=== PATIENT | female | born 1960 | race Caucasian/White ===

== ENCOUNTER 2018-11-07 12:36 | Inpatient (IN) ==
[2018-11-07] MEDS ORDERED: DUONEB (A & A) INH ONE (12:54)
[2018-11-07] MEDS ORDERED: SOLU-MEDROL IV ONE (12:55)
--- NOTE | 2018-11-07 13:03 | PROVIDER DOCUMENTATION ---
This chart was entered by Elaine Chavez Scribe, acting as scribe for Abby Barbosa CRNP. HPI-General Adult - General Chief Complaint: Cough Stated Complaint: POSS. PNEUMONIA Time Seen by Provider: 11/07/18 12:40 Source: patient Allergies/Adverse Reactions: Patient Allergies Allergy/AdvReac Type Severity Reaction Status Date / Time doxycycline Allergy Severe HIVES Verified 10/15/18 08:20 latex Allergy HIVES Verified 10/15/18 08:20 Home Medications: Home Medication List Medication Instructions Recorded Confirmed Last Taken Type Atenolol [Tenormin] 50 mg PO DAILY #0 04/09/16 10/30/18 10/29/18 Rx Duloxetine HCl [Cymbalta] 30 mg PO DAILY #30 capsule. 04/09/16 10/30/18 10/29/18 Rx Gabapentin 800 mg PO TID 10/15/18 10/30/18 10/29/18 History Hydrocodone/Acetaminophen [Harshaw 1 each PO Q4-6H PRN PRN 10/15/18 10/30/18 10/29/18 History 7.5-325 Tablet] Hyoscyamine Subl [Levsin-Sl] 0.125 mg SL TID PRN #12 tab 10/15/18 10/30/18 10/29/18 Rx Ondansetron Odt [Zofran 4 mg Odt] 4 mg PO Q6H PRN PRN #14 tab 10/15/18 10/30/18 10/29/18 Rx - History of Present Illness -Gen Adult Nature of Presenting Problems: 58 y/o female presents to ED with cough and sinus drainage onset yesterday. Pt reports she was seen at urgent care this morning and sent to ED because her O2 sat was low. O2 sat 86% on room air in room. Pt is alert and oriented. Location of Pain/Injury: reports: none Pain Radiation: reports: no radiation Quality of Pain: reports: none Severity: reports: mild Onset/Duration: reports: 24 hours ago Timing: reports: still present Context/Activities at Onset: reports: none Modifying Factors: improves with: nothing Associated Symptoms: reports: cough, sinus congestion/drainage Similar Symptoms Previously?: No Recently seen or treated by another doctor?: Yes (sent to ED from urgent care) Review of Systems - Adult - REVIEW OF SYSTEMS - ADULT Constitutional: denies: chills, fever Eyes: reports: no symptoms reported Ears, Nose, Mouth & Throat: reports: sinus problem. denies: epistaxis Cardiovascular: denies: chest pain, palpitations Respiratory: reports: cough. denies: shortness of breath Gastrointestinal: denies: abdominal pain, diarrhea, nausea, vomiting Genitourinary: reports: no symptoms reported Musculoskeletal: denies: back pain, joint pain Integumentary: reports: no symptoms reported Neurological: denies: dizziness/vertigo, seizure Psychiatric: reports: no symptoms reported Endocrine: reports: no symptoms reported Hematologic/Lymphatic: reports: no symptoms reported Allergic/Immunologic: reports: no symptoms reported All Other Systems: Reviewed and Negative Past History - Adult - PAST MEDICAL HISTORY-ADULT Review of Records: reports: Old Records Reviewed, Nursing Assessment Review, Medications Reviewed Major Childhood Illnesses: reports: denies history Cardiovascular: reports: heart valve problem (MVP), [place] Gastrointestinal: reports: GERD Obstetrical/Gynecological: reports: denies history Psychiatric: reports: depression - PRIOR SURGERIES/PROCEDURES Surgical/Procedure History: reports: cholecystectomy, hysterectomy, orthopedic (extremity) (R rotator cuff), back/neck (C spine; neck) - IMMUNIZATION STATUS Childhood Immunizations: See Nurse Assessment Flu Vaccine: See Nurse Assessment - FAMILY HISTORY Family History: reviewed, not pertinent - SOCIAL HISTORY Smoking: quit greater than 1 year Substance Use: none/never Alcohol Use Frequency: never Living Situation: family Physical Exam-General - PHYSICAL EXAM-ADULT Initial Vital Signs Reviewed: Yes (O2 sat 86%) - CONSTITUTIONAL General Appearance: appears well, alert, no apparent distress - EYES Eyes: PERRL/EOMI, pink conjunctivae - HEAD, EARS, NOSE, MOUTH & THROAT HENMT: normocephalic/atraumatic, moist mucous membranes, normal ENT inspection - NECK Neck: non-tender, full range of motion - RESPIRATORY Respiratory: chest non-tender, lungs clear, normal breath sounds, no pleuratic chest pain, no respiratory distress, no accessory muscle use - CARDIOVASCULAR Cardiovascular: normal peripheral pulses, regular rate, rhythm - GASTROINTESTINAL (ABDOMEN) Abdominal Exam: normal bowel sounds, non tender, soft - MUSCULOSKELETAL Back Exam: normal inspection, no CVA tenderness Extremity: normal range of motion, non-tender, normal gait - SKIN Integumentary: normal color, warm/dry - NEUROLOGIC Neurologic: grossly normal - PSYCHIATRIC Psych/Mental Status: normal mood/affect, normal thought content, normal thought process Progress - PLAN OF CARE/RESULTS Progress/Plan/Lab Results: Vital Signs - 8 hr 11/07/18 12:44 Temperature 98.2 F Pulse Rate 107 H Respiratory Rate 18 Blood Pressure 116/69 O2 Sat by Pulse Oximetry 90 L Orders Category Date Time Status Saline Loc NOW Care 11/07/18 12:55 Active CHEST-2 VIEWS [RAD] Stat Exams 11/07/18 12:49 Ordered ABG [RESP] Routine Lab 11/07/18 12:54 Ordered CBC WITH ELECTRONIC DIFF [HEME] Stat Lab 11/07/18 12:55 Ordered COMPREHENSIVE METABOLIC PANEL [CHEM] Stat Lab 11/07/18 12:55 Ordered Albuterol 2.5MG/Ipratrop 0.5MG [Duoneb (A & A)] Med 11/07/18 12:54 Once 6 ml INH NOW ONE Methylprednisolone Sod Succ [Solu-Medrol] Med 11/07/18 12:55 Discontinued 80 mg IV NOW ONE Aerosol Treatments Routine Oth 11/07/18 12:54 Active Aerosol Treatments Stat Oth 11/07/18 12:54 Active Result Diagrams: 11/07/18 13:15 11/07/18 13:15 - XRAY 1 XRAY Study: Chest Impression: Abnormal (FINDINGS: There is left upper lobe patchy airspace consolidation indicating pneumonia. There is no discrete pleural fluid colle ction or pneumothorax. The cardiomediastinal silhouette and central vasculature are grossly unremarkable. IMPRESSION: Left upper lobe pneumonia. Electronically signed by Tristin Swift 11/07/2018 1:43 PM) - CONSULTS/PCP/HOSPITALIST Notification #1 *Consult/PCP/Hospitalist*: Dr. Salmeron Time Discussed: 14:11 Reason/Comments: Admission Consult Disposition: Admit Departure - Departure Date of Disposition Decision: 11/07/18 Time of Disposition Decision: 13:51 DIAGNOSIS: Hypoxia Pneumonia Qualifiers: Pneumonia type: due to unspecified organism Laterality: left Lung location: upper lobe of lung Qualified Code(s): J18.1 - Lobar pneumonia, unspecified organism Disposition: ADMITTED INPATIENT 09 Certified Medical Emergency: Emergent Condition: Stable Referrals and Follow-Ups: Liborio Stein [Primary Care Provider] - - Critical Care Note This patient required my direct & personal management of CC.: No Attestation - Physician/ JADE Attestation Patient care was provided by Advanced Practice Provider:: Yes Advanced Practice Provider:: Abby Barbosa Advanced Practice Provider documentation review:: The Mid-level provider documentation, treatment plan and medical decision making was reviewed by the physician who agrees with all treatment and medical decision making by the MLP. The physician spent face to face time with patient:: No Advanced Practice Provider documentation review:: Supervising physician onsite and consulted in the evaluation and care of this patient. The physician did not have a face to face encounter with the patient. This chart was documented by the indicated scribe, (Elaine Chavez Scribe) and accurately reflects the services I performed and decisions made by me, Abby Barbosa CRNP, as attested by the provider's signature.
[2018-11-07 13:20] LABS: BASO# 0.03 X1000 (0.0-0.2); BASO% 0.2 % (0.0-0.8); EOS# 0.18 X1000 (0.0-0.7); EOS% 1.3 % (0.0-10.0); HEMATOCRIT 34.1 % (37.0-47.0); IMM GRAN# 0.02 X1000 (0.0-0.04); IMM GRAN% 0.1 % (0.0-0.5); LYMPH# 1.79 X1000 (1.2-3.4); LYMPH% 12.5 % (20.5-51.1); MCH 30.1 PG (27-31); MCHC 32.3 g/dL (33-37); MCV 93.4 FL (81-99); MONO# 0.55 X1000 (0.11-0.59); MONO% 3.8 % (1.7-9.3); MPV 10.1 FL (7.4-10.4); NEUT# 11.75 X1000 (1.4-6.5); NEUT% 82.1 % (42.2-75.2); PLT 393 X1000 (130-400); RBC 3.65 XMIL (4.2-5.4); RDW 15.4 % (11.5-14.5); WBC 14.32 X1000 (4.8-10.8)
[2018-11-07 13:25] LABS: BE 2.4 mmoll (-3.0-3.0); BLOOD TYPE ARTERIAL; HCO3-(ACT) 26.4 mmoll (20.0-26.0); METHB 1.4 % (0.0-1.5); O2(CT) 12.5 mL/dL (15.0-23.0); SAMPLE BLOOD; SAO2 87.7 % (95.0-100.0); THB 11.2 g/dL (11.5-17.4); pH(98.6) 7.34 (7.35-7.45)
[2018-11-07 13:38] LABS: AGAP 10; ALBUMIN 3.6 g/dL (3.5-5.0); ALKALINE PHOSPHATASE 125 U/L (32-104); BUN 8 mg/dL (8-22); CALCIUM 8.5 mg/dL (8.8-10.2); CHLORIDE 100 mmol/L (98-107); COSMO 273; CREATININE 0.5 mg/dL (0.5-0.9); ESTIMATED GFR > 60; GLUCOSE 105 mg/dL (70-104); GOT 24 U/L (10-30); GPT 44 U/L (10-36); POTASSIUM 3.7 mmol/L (3.5-5.1); SODIUM 137 mmol/L (136-145); TCO2 27 mmol/L (25-35); TOTAL PROTEIN 6.7 g/dL (6.3-8.3)
--- NOTE | 2018-11-07 13:46 | Diag Imaging Result Doc PS360 ---
EXAM: CHEST-2 VIEWS INDICATION: cough low 02 sat TECHNIQUE: 2 views COMPARISON: 03/12/2018 FINDINGS: There is left upper lobe patchy airspace consolidation indicating pneumonia. There is no discrete pleural fluid collection or pneumothorax. The cardiomediastinal silhouette and central vasculature are grossly unremarkable. IMPRESSION: Left upper lobe pneumonia. Electronically signed by Tristin Swift 11/07/2018 1:43 PM
[2018-11-07] MEDS ORDERED: ROCEPHIN 1 GM in NS 50 ML IV ONE (13:50)
[2018-11-07] MEDS ORDERED: ZITHROMAX 500 MG/NS 500 MG/250 ML IVPB IV ONE (13:50)
[2018-11-07 14:06] LABS: PCO2(98.6) 54 mmHg (35-45)
[2018-11-07 14:07] LABS: PO2(98.6) 43 mmHg (60-100)
[2018-11-07 14:09] LABS: ALLEN TEST YES; MODALITY ROOM AIR; O2HB 79.7 % (95.0-99.0)
[2018-11-07] MEDS ORDERED: DUONEB (A & A) INH PRN (14:21)
[2018-11-07] MEDS: DUONEB (A & A) INH SCH ×3 (16:04→23:13)
[2018-11-07] MEDS: NS 1,000 ML IV SCH (16:11)
[2018-11-07] MEDS ORDERED: ROBITUSSIN-DM PO PRN (16:18)
--- NOTE | 2018-11-07 17:23 | HISTORY AND PHYSICAL ---
CHIEF COMPLAINT: Cough, low blood, low oxygen. HISTORY OF PRESENT ILLNESS: This is a 58-year-old female with a history of mitral valve prolapse, who presented to the emergency room after being evaluated at an outlying facility and being found to have a room air saturation of 86%. The patient states that she has had a cough and sinus drainage for the last 24 hours. During the night up into the morning, she developed dyspnea on exertion. During the night up into the morning she developed shortness of breath at rest with a persistent cough prompting her seeking help. Chest x-ray revealed left upper lobe pneumonia. ABGs revealed a pCO2 of 54 and PO2 of 43 on room air. She is being admitted for further evaluation and treatment. PAST MEDICAL HISTORY: Mitral valve prolapse, gastroesophageal reflux disease, chronic neck pain status post fusion, alcoholic pancreatitis, past narcotic addiction. PAST SURGICAL HISTORY: Cholecystectomy, hysterectomy, orthopedic surgery to left foot and cervical C5-C6 fusion. ALLERGIES: Doxycycline and latex. HOME MEDICATIONS: A list will be obtained by the nursing staff. Once verified, we will review and restart as appropriate. REVIEW OF SYSTEMS: Discussed with patient with pertinent positives stated in the HPI. She denied any syncope, dizziness, chest pain, palpitations, any fevers, chills, body aches, any nausea, vomiting, diarrhea, constipation, black or bloody vomitus or stools, any hematuria, dysuria, frequency, urgency. PHYSICAL EXAMINATION: GENERAL: This is a 58-year-old female who is sitting up in the stretcher in the ER in no distress. VITAL SIGNS: Blood pressure is 103/69 with a heart rate of 100, respirations are 20, temperature is 97.8 degrees oral with O2 saturation 97 to 100 percent on 2 L nasal cannula. EYES: Pupils are equal, round, react to light. EOMs are intact. Sclerae are anicteric. HEENT: Head is normocephalic, atraumatic. Mucous membranes are moist. NECK: Supple with trachea midline. CARDIOVASCULAR: Regular rate and rhythm. S1 and S2 appreciated. EXTREMITIES: She has no lower extremity edema. Peripheral pulses are palpable x4 extremities. Calves are nontender to palpation. GASTROINTESTINAL: Abdomen is soft, nontender, nondistended with bowel sounds in all 4 quadrants. NEUROLOGIC: She is alert and oriented x3. SKIN: Warm and dry. LABS: WBC is 14.3, with a hemoglobin 11, hematocrit 34, platelets of 393,000. ABGs, pH is 7.3 with a CO2 of 54, pO2 of 43 and a bicarb of 26.4. These are on room air. Sodium is 137, potassium 3.7, BUN 8, creatinine 0.5, glucose of 105. Blood cultures are pending. Chest x-ray revealed left upper lobe pneumonia. ASSESSMENT AND PLAN: A 58-year-old female who is sitting up in the stretcher in ICU in no distress. 1. Left upper lobe pneumonia. 2. Acute hypercarbic hypoxic respiratory failure. 3. Leukocytosis secondary to #1. 4. History of mitral valve prolapse. 5. History of alcohol abuse and narcotic abuse. We are aware. 6. DVT prophylaxis and GI prophylaxis. The patient will be admitted to the medical-surgical floor. She will be placed on telemetry. We will continue with supplemental oxygen. We will start incentive spirometer, giving DuoNeb q.4 hours or q.2 hours p.r.n. and steroids to taper. We will continue with Rocephin 1 g every 24 hours as well as azithromycin 500 mg daily, and any further antibiotics will be culture driven. Will identify her home medications and continue these as appropriate. We will repeat a CBC and a CMP in the morning. We will give Robitussin DM for cough. For DVT prophylaxis we will use SCDs and GI prophylaxis use Prilosec. Further treatments pending hospital course. Dictated by HORACIO Wolff for Félix Salmeron MD This chart was documented by, HORACIO Wolff and accurately reflects the services performed, treatment plan and medical decisions as attested by the providers signature Félix Salmeron MD. cc: HORACIO Wolff MD
[2018-11-07] MEDS: SOLU-MEDROL IV SCH (20:58)
[2018-11-07 23:52] VITALS: BP 122/71
[2018-11-08 00:13] LABS: INR 0.92; PROTIME 12.8 Seconds (11.0-16.0)
[2018-11-08 00:14] LABS: PTT 41.6 Seconds (22.3-41.8)
--- NOTE | 2018-11-08 01:05 | HISTORY AND PHYSICAL ---
ADDENDUM: Patient seen and examined by myself. Full note dictated and discussed with nurse practitioner. Patient presented to the walk-in clinic earlier and was asked to come to the ER where she was subsequently noted to be [*]. She was diagnosed with pneumonia and likely a COPD exacerbation. We will admit her to the hospital, place her on antibiotics, oxygen, breathing treatments and we will follow. cc: Félix Salmeron MD
[2018-11-08] MEDS: DUONEB (A & A) INH SCH ×3 (03:45→10:55)
[2018-11-08] MEDS: SOLU-MEDROL IV SCH (04:03)
[2018-11-08] MEDS: NS 1,000 ML IV SCH (06:04)
[2018-11-08 06:25] LABS: HEMATOCRIT 31.5 % (37.0-47.0); HEMOGLOBIN 10.2 g/dL (12.0-16.0); IMM GRAN# 0.01 X1000 (0.0-0.04); IMM GRAN% 0.1 % (0.0-0.5); LYMPH# 0.79 X1000 (1.2-3.4); LYMPH% 6.9 % (20.5-51.1); MCH 29.9 PG (27-31); MCHC 32.4 g/dL (33-37); MCV 92.4 FL (81-99); MONO# 0.17 X1000 (0.11-0.59); MONO% 1.5 % (1.7-9.3); MPV 10.4 FL (7.4-10.4); NEUT# 10.44 X1000 (1.4-6.5); NEUT% 91.5 % (42.2-75.2); PLT 417 X1000 (130-400); RBC 3.41 XMIL (4.2-5.4); RDW 15.2 % (11.5-14.5); WBC 11.41 X1000 (4.8-10.8)
[2018-11-08 06:39] LABS: AGAP 12; ALBUMIN 3.3 g/dL (3.5-5.0); ALKALINE PHOSPHATASE 106 U/L (32-104); BUN 5 mg/dL (8-22); CALCIUM 8.6 mg/dL (8.8-10.2); CHLORIDE 102 mmol/L (98-107); COSMO 280; CREATININE 0.4 mg/dL (0.5-0.9); ESTIMATED GFR > 60; GLUCOSE 163 mg/dL (70-104); GOT 15 U/L (10-30); GPT 31 U/L (10-36); SODIUM 140 mmol/L (136-145); TCO2 25 mmol/L (25-35); TOTAL PROTEIN 6.3 g/dL (6.3-8.3)
[2018-11-08] MEDS ORDERED: ZOFRAN IV PRN (06:55)
[2018-11-08] MEDS ORDERED: PRILOSEC PO SCH (07:00)
[2018-11-08] MEDS ORDERED: ZITHROMAX PO SCH (09:00)
[2018-11-08] MEDS ORDERED: ZOFRAN ODT PO PRN (09:23)
[2018-11-08] MEDS ORDERED: KLOR-CON PO ONE (09:24)
[2018-11-08] MEDS ORDERED: CYMBALTA PO SCH (09:30)
[2018-11-08] MEDS ORDERED: TENORMIN PO SCH (09:30)
[2018-11-08] MEDS ORDERED: SOLU-MEDROL IV SCH (12:00)
[2018-11-08] MEDS ORDERED: NEURONTIN PO SCH (13:00)
[2018-11-08] MEDS ORDERED: ROCEPHIN 1 GM in NS 50 ML IV SCH (14:00)
--- NOTE | 2018-11-09 01:21 | DISCHARGE SUMMARY ---
ADMISSION DATE: 11/07/2018 DISCHARGE DATE: 11/08/2018 DISCHARGE DIAGNOSES: 1. Left upper lobe pneumonia, improved. 2. Acute hypoxic respiratory failure, resolved. 3. Leukocytosis, resolved. 4. Hypokalemia. CONSULTATIONS: None. PROCEDURES: None. BRIEF HOSPITAL COURSE: Patient is a 58-year-old female who presented to the hospital, treated in the usual fashion, placed on antibiotics, oxygen, steroids, breathing treatments. Thankfully, her lungs continued to improve and she had uneventful hospital course. DISPOSITION: Patient will be discharged home. She will follow up outpatient with treatment facility of choice. Discussed with her discharged with antibiotics, steroids. She is to avoid all smoke, smoke exposure as well as chemical exposure for the next 1 to 2 weeks until she follows up with her primary care. Greater than 30 minutes was spent in total care. cc: Félix Salmeron MD
== END 2018-11-08 12:37 | disposition home or self-care (01) | DRG 193 ==
LOC: P.ED 12:36 → P.MEDSURG 12:37
PROVIDERS: ATTEND Family Medicine
CPT/HCPCS: 71020; 71046; 80053; 82550; 82805; 83605; 84484; 85025; 85610; 85730; 87040; 94640; 94761; 94799; A9270; J0456; J0696; J2405; J2930; J7030

== ENCOUNTER 2019-01-23 09:20 | Observation (INO) ==
[2019-01-23 10:08] LABS: BASO# 0.03 X1000 (0.0-0.2); BASO% 0.4 % (0.0-0.8); EOS# 0.05 X1000 (0.0-0.7); EOS% 0.6 % (0.0-10.0); HEMOGLOBIN 16.3 g/dL (12.0-16.0); IMM GRAN# 0.03 X1000 (0.0-0.04); IMM GRAN% 0.4 % (0.0-0.5); LYMPH% 23.1 % (20.5-51.1); MCH 30.6 PG (27-31); MCHC 35.4 g/dL (33-37); MCV 86.5 FL (81-99); MONO# 0.57 X1000 (0.11-0.59); MONO% 6.9 % (1.7-9.3); MPV 10.7 FL (7.4-10.4); NEUT# 5.65 X1000 (1.4-6.5); NEUT% 68.6 % (42.2-75.2); PLT 512 X1000 (130-400); RBC 5.32 XMIL (4.2-5.4); RDW 13.3 % (11.5-14.5); WBC 8.23 X1000 (4.8-10.8)
[2019-01-23] MEDS ORDERED: SODIUM CHLORIDE 0.9% INJ ONE (10:11)
[2019-01-23] MEDS ORDERED: PHENERGAN IV ONE (10:11)
[2019-01-23] MEDS ORDERED: NS 1,000 ML IV ONE ×3 (10:11→14:39)
[2019-01-23 10:22] LABS: ALBUMIN 4.5 g/dL (3.5-5.0); CALCIUM 10.7 mg/dL (8.8-10.2); MAGNESIUM 1.4 mg/dL (1.5-2.7); POTASSIUM 2.9 mmol/L (3.5-5.1); TOTAL BILIRUBIN 0.4 mg/dL (0.20-1.00); TOTAL PROTEIN 8.4 g/dL (6.3-8.3)
[2019-01-23 10:25] LABS: INR 0.93; PROTIME 12.9 Seconds (11.0-16.0)
[2019-01-23 10:26] LABS: PTT 33.1 Seconds (22.3-41.8)
[2019-01-23] MEDS ORDERED: MAGNESIUM SULFATE 2 GM/S.W.I. 2 GM/50 ML IVPB IV ONE (10:30)
[2019-01-23] MEDS ORDERED: KLOR-CON PO ONE (10:31)
[2019-01-23] MEDS ORDERED: DEMEROL IV ONE (11:15)
[2019-01-23] MEDS ORDERED: TORADOL IM ONE (11:43)
--- NOTE | 2019-01-23 12:44 | EKG Report ---
Test Performed on : 01/23/2019 12:03:44 PM Test Reason : tachycardic/low k Blood Pressure : / mmHG Vent. Rate : 103 BPM Atrial Rate : 103 BPM P-R Int : 152 ms QRS Dur : 096 ms QT Int : 412 ms P-R-T Axes : 068 036 -05 degrees QTc Int : 539 ms Sinus tachycardia. 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
--- NOTE | 2019-01-23 13:42 | PROVIDER DOCUMENTATION ---
This chart was entered by Stephane Cartagena Scribe, acting as scribe for Mohamud Nowak MD. HPI-General Adult - General Chief Complaint: N/V/D Stated Complaint: VOMITTING Time Seen by Provider: 01/23/19 09:39 Source: patient Allergies/Adverse Reactions: Patient Allergies Allergy/AdvReac Type Severity Reaction Status Date / Time doxycycline Allergy Severe HIVES Verified 01/23/19 10:07 latex Allergy HIVES Verified 01/23/19 10:07 Home Medications: Home Medication List Medication Instructions Recorded Confirmed Last Taken Type Gabapentin 800 mg PO TID 10/15/18 01/23/19 10/29/18 History Ondansetron Odt [Zofran Odt] 4 mg PO Q6H PRN PRN #14 tab 10/15/18 01/23/19 10/29/18 Rx Atenolol [Tenormin] 50 mg PO DAILY 11/07/18 01/23/19 Unknown History Acetaminophen E.r. [Tylenol 1,000 mg PO BID PRN 01/23/19 01/23/19 Unknown History Arthritis] Cyclobenzaprine HCl 10 mg PO HS 01/23/19 01/23/19 Unknown History Diphenoxylate/Atropine [Lomotil] 10 mg PO DIRECTED PRN 01/23/19 01/23/19 Unknown History Duloxetine HCl 80 mg PO DAILY 01/23/19 01/23/19 Unknown History Phenylephrine/Acetaminophen/Cp 1 tab PO DAILY PRN 01/23/19 01/23/19 Unknown History [Norel Ad Tablet] - History of Present Illness -Gen Adult Nature of Presenting Problems: Pt is a 58 y/o F presents to the ED with all over body pain with n/v for 1 week. Pt reports she has hx of low calcium and reports 2 neck surgeries this past year. She says she has been eating tums. Location of Pain/Injury: reports: generalized Quality of Pain: reports: aching, cramping Severity: reports: moderate, severe Onset/Duration: reports: 1 week ago Timing: reports: still present Context/Activities at Onset: reports: none Modifying Factors: improves with: nothing Associated Symptoms: reports: fever/chills, nausea, vomiting. denies: back/neck pain, headaches, weakness Similar Symptoms Previously?: No Recently seen or treated by another doctor?: No Review of Systems - Adult - REVIEW OF SYSTEMS - ADULT Constitutional: denies: chills, fever Eyes: reports: no symptoms reported Ears, Nose, Mouth & Throat: reports: no symptoms reported Cardiovascular: denies: chest pain, edema Respiratory: denies: cough, shortness of breath Gastrointestinal: reports: abdominal pain, diarrhea, nausea, vomiting Genitourinary: reports: no symptoms reported Musculoskeletal: denies: back pain, neck pain Integumentary: reports: no symptoms reported Neurological: denies: dizziness/vertigo, headache/migraines Psychiatric: reports: no symptoms reported Endocrine: reports: no symptoms reported Hematologic/Lymphatic: reports: no symptoms reported Allergic/Immunologic: reports: no symptoms reported All Other Systems: Reviewed and Negative Past History - Adult - PAST MEDICAL HISTORY-ADULT Review of Records: reports: Old Records Reviewed, Nursing Assessment Review, Medications Reviewed Major Childhood Illnesses: reports: denies history Cardiovascular: reports: heart valve problem (MVP), [place] Gastrointestinal: reports: GERD Obstetrical/Gynecological: reports: denies history Psychiatric: reports: depression - PRIOR SURGERIES/PROCEDURES Surgical/Procedure History: reports: cholecystectomy, hysterectomy, orthopedic (extremity) (R rotator cuff), back/neck (C spine; neck) - IMMUNIZATION STATUS Childhood Immunizations: See Nurse Assessment Flu Vaccine: See Nurse Assessment - FAMILY HISTORY Family History: reviewed, not pertinent - SOCIAL HISTORY Smoking: quit less than 1 year Living Situation: family Physical Exam-General - PHYSICAL EXAM-ADULT Initial Vital Signs Reviewed: Yes - CONSTITUTIONAL General Appearance: alert, other (Pt hands draw when attempting to take BP) - EYES Eyes: PERRL/EOMI, pink conjunctivae - HEAD, EARS, NOSE, MOUTH & THROAT HENMT: moist mucous membranes, normal ENT inspection, TMs normal, pharynx normal - NECK Neck: non-tender, full range of motion, supple, normal inspection - RESPIRATORY Respiratory: lungs clear, normal breath sounds, no pleuratic chest pain, no respiratory distress, no accessory muscle use - CARDIOVASCULAR Cardiovascular: normal peripheral pulses, tachycardia - GASTROINTESTINAL (ABDOMEN) Abdominal Exam: normal bowel sounds, soft, tenderness (generalized). negative: rebound - MUSCULOSKELETAL Back Exam: normal inspection, no vertebral tenderness, CVA tenderness (right) Extremity: normal range of motion, non-tender, normal gait, normal inspection - SKIN Integumentary: normal color, normal turgor, warm/dry - NEUROLOGIC Neurologic: grossly normal, no motor/sensory deficits - PSYCHIATRIC Psych/Mental Status: normal mood/affect, normal thought content, normal thought process, oriented x 3 (p) Progress - PLAN OF CARE/RESULTS Progress/Plan/Lab Results: Vital Signs - 8 hr 01/23/19 09:26 Temperature 97.8 F Pulse Rate 94 H Respiratory Rate 18 O2 Sat by Pulse Oximetry 100 Orders Category Date Time Status Saline Loc NOW Care 01/23/19 09:34 Active AMYLASE [CHEM] Stat Lab 01/23/19 09:34 Ordered CBC WITH ELECTRONIC DIFF [HEME] Stat Lab 01/23/19 09:33 Uncollected COMPREHENSIVE METABOLIC PANEL [CHEM] Stat Lab 01/23/19 09:34 Uncollected LIPASE [CHEM] Stat Lab 01/23/19 09:34 Uncollected PROTIME WITH INR [COAG] Stat Lab 01/23/19 09:33 Ordered PTT [COAG] Stat Lab 01/23/19 09:33 Ordered Result Diagrams: 01/23/19 09:50 01/23/19 09:50 - EKG 1 Time of EKG reading by physician:: 12:03 EKG Read and Signed by:: Mohamud Nowak EKG Interpretation (*Must complete 3 of following elements*): Abnormal Rate: 103 Rhythm: sinus tach Comments: prolonged QT - CONSULTS/PCP/HOSPITALIST Notification #1 *Consult/PCP/Hospitalist*: Dr Fenton, Hospitalist Time Discussed: 11:24 Reason/Comments: HPI an dplan of care Consult Disposition: other (Check orthostatics and po challenge. If so outpatient treatment) Departure - Departure Date of Disposition Decision: 01/23/19 Time of Disposition Decision: 13:41 DIAGNOSIS: Dehydration symptoms Disposition: ADMITTED INPATIENT 09 Certified Medical Emergency: Emergent Condition: Stable Referrals and Follow-Ups: Heron Bruner MD [Primary Care Provider] - - Critical Care Note This patient required my direct & personal management of CC.: No Attestation - Physician/ JADE Attestation Patient care was provided by Advanced Practice Provider:: No The physician spent face to face time with patient:: Yes Advanced Practice Provider documentation review:: Supervising physician onsite and consulted in the evaluation and care of this patient. The physician did have a face to face encounter with the patient. This chart was documented by the indicated scribe, (Stephane Cartagena Scribe) and accurately reflects the services I performed and decisions made by me, Mohamud Nowak MD, as attested by the provider's signature.
[2019-01-23] MEDS ORDERED: ZOFRAN ODT PO PRN (14:18)
[2019-01-23] MEDS ORDERED: TYLENOL PO PRN (14:18)
[2019-01-23] MEDS ORDERED: LOMOTIL PO PRN (14:18)
[2019-01-23 14:44] VITALS: BP 115/67
[2019-01-23] MEDS ORDERED: NEURONTIN PO SCH (17:00)
--- NOTE | 2019-01-23 17:20 | HISTORY AND PHYSICAL ---
PRIMARY CARE PHYSICIAN: Dr. Heron Bruner. CHIEF COMPLAINT: Nausea and vomiting for 1 week that has progressively worsened. HISTORY OF PRESENTING ILLNESS: This is a 58-year-old female who presents to [facility] ER with complaints of nausea, vomiting and body aches and cramps all over for the past week. States that the cramps are severe all over. Her workup showed a potassium of 2.9, a magnesium of 1.4, her amylase was 257 but her lipase was 8. She denied any abdominal pain and no tenderness to palpation. Her blood pressure shortly after arriving dropped to 86/51 but after fluid resuscitation is now at 123/56 and so she is going to be admitted for further evaluation and treatment. PAST MEDICAL HISTORY: Of mitral valve prolapse, GERD, chronic neck pain status post fusion, alcoholic pancreatitis and past narcotic addiction. PAST SURGICAL HISTORY: Cholecystectomy, hysterectomy, left foot surgery and a cervical C5-C6 fusion. FAMILY HISTORY: Reviewed and noncontributory. SOCIAL HISTORY: She denied any tobacco use stating she quit 2 years ago and denied any alcohol or illicit drug use. ALLERGIES: Doxycycline and latex. HOME MEDICATIONS: She takes Tylenol Arthritis 1000 mg p.o. b.i.d. p.r.n., Tenormin 50 mg p.o. daily, cyclobenzaprine 10 mg p.o. at bedtime, Lomotil 10 mg p.o. p.r.n., duloxetine 80 mg p.o. daily, gabapentin 800 mg p.o. t.i.d., ondansetron 4 mg p.o. q.6 hours p.r.n. and Norel tablet 1 p.o. daily p.r.n. I am going to hold. LABORATORY DATA: Showed a white blood cell count of 8.23, hemoglobin 16.3, hematocrit 46, platelets 512,000, PT and INR of 12.9 and 0.93. Sodium 138, potassium 2.9, chloride 92, CO2 21, BUN of 16, creatinine 1, glucose 168, magnesium of 1.4, amylase of 257, lipase 8. EKG showed sinus tachycardia at 103. REVIEW OF SYSTEMS: She denied any fever, chills, blurred vision, dizziness, chest pain, coughing, or shortness of breath. She had nausea, vomiting and generalized muscle cramps to entire body and denied any constipation, diarrhea, burning or hurting with urination. PHYSICAL EXAMINATION: On arrival she had a temperature of 97.8 degrees, pulse 94, respirations 18, blood pressure was 107/77, approximately 30 minutes later her blood pressure did drop to 86/51. Orthostatic showed a lying of 113/84, pulse of 113, sitting 116/81 with a pulse of 122 and standing 111/78 with a pulse of 137. GENERAL: This is a 58-year-old female who is lying in the bed and answers questions appropriately. HEENT: Normocephalic, atraumatic. Normal ENT inspection. Oropharynx and nares are clear. Pupils are equal, round, reactive to light and accommodation. Extraocular movements are intact. NECK: Normal inspection, normal range of motion. LUNGS: Clear to auscultation bilaterally with equal lung expansion and chest wall movement. HEART: With regular rate and rhythm. No murmurs, rubs, or gallops. ABDOMEN: Soft, nontender, nondistended. Bowel sounds are present x4 quadrants. MUSCULOSKELETAL: She has 5/5 strength but complains of muscle aches and cramping to bilateral upper and lower extremities. NEUROLOGICAL: The cranial nerves 2-12 appear grossly intact. ASSESSMENT: 1. Nausea, vomiting. 2. Hypokalemia. 3. Hypomagnesemia. 4. Hypotension now resolved. PLAN: She is being admitted to the medical unit placed on telemetry. Normal saline at 125 mL an hour, Zofran 4 mg p.o. q.6 hours p.r.n., will continue her home medication. She received a dose of Toradol 30 mg IM x1 and Demerol 25 mg IM x1 in the emergency room but states that really did not relieve her pain. Will discuss pain management with attending and order as appropriate. Further orders after being seen by attending. Dictated by HORACIO Orellana for Karl Badillo MD Addendum: Patient seen and examined by myself. Agree with HORACIO note. It reflects my assessment and plan. Patient is being admitted to hospital for nausea and vomiting and electrolyte derangements. Will continue with IV fluids and will replete electrolytes as well. cc: MD Karl Tucker MD [facility]
--- NOTE | 2019-01-23 20:42 | DISCHARGE SUMMARY ---
ADMISSION DATE: 01/23/2019 DISCHARGE DATE: 01/23/2019 Please note this is an AMA discharge of a 58-year-old female who initially presented to the emergency room with nausea, vomiting for a week. Her electrolytes showed a potassium of 2.9, magnesium of 1.4. We were hydrating her because her blood pressure had dropped shortly after arrival to 85/51. We were supplementing her potassium and we had already supplemented her magnesium but we admitted her for evaluation and treatment and once the patient arrived to the medical floor at [place] she decided to leave AM. TIME SPENT: 33 minutes. Dictated by HORACIO Orellana for Karl Badillo MD cc: MD Karl Tucker MD
[2019-01-23] MEDS ORDERED: FLEXERIL PO SCH (21:00)
[2019-01-24] MEDS ORDERED: TENORMIN PO SCH (09:00)
[2019-01-24] MEDS ORDERED: CYMBALTA PO SCH (09:00)
== END 2019-01-23 15:37 | disposition left against medical advice (07) ==
LOC: P.ED 09:20 → P.MEDSURG 09:20
PROVIDERS: ADMIT Internal Medicine; ATTEND Internal Medicine
CPT/HCPCS: 80053; 82150; 83690; 83735; 85025; 85610; 85730; 93005; A9270; J1885; J2175; J2550; J3475; J7030